=== PATIENT | male | born 1955 | race Caucasian/White ===

== ENCOUNTER 2025-10-30 11:53 | Emergency (ER) | payer MEDICARE, SELFPAY ==
[2025-10-30 12:44] VITALS: BP 126/69; PULSE 70; RESP 18; TEMP 36.6; O2SAT 97; BMI 20.6
--- NOTE | 2025-10-30 12:44 | ED.MALEGU ---
HPI - Male Genitourinary General Chief complaint: Urogenital-Male Stated complaint: Urinary Symptoms Time Seen by Provider: 10/30/25 17:17 Source: patient Mode of arrival: ambulatory Limitations: no limitations History of Present Illness ED Provider: Dr. Navarrete [facility] Narrative: 70-year-old male history of UTI eyes presented hospital today for evaluation of increased urinary frequency and urinary retention. Patient stated that he is able to urinate earlier today without any issues. He urinated approximately 2 hours ago. He had a good stream. He does take tamsulosin. Denies any dysuria however has been urinating more than usual. Patient's itonakpb-tl-dzy stated that patient does have. Confusion. She was worried about UTI. Related Data Previous Rx's ?Medication ?Instructions ?Recorded ciprofloxacin HCl 500 mg tablet 500 mg PO Q12H 7 days #14 tabs 10/30/25 Allergies Allergy/AdvReac Type Severity Reaction Status Date / Time No Known Allergies Allergy Verified 10/30/25 12:47 Review of Systems Review of Systems: Pertinent review of systems as mentioned in HPI. All other system otherwise negative. [facility] Past Medical History [facility] Narrative: Medical history as mentioned in [facility] Social History Social History Advance Directives: No Advance Directives Information Provided: No Physical Exam Exam: Exam: General: Pleasant, no distress, interacting appropriately Head: Normacephalic, atraumatic ENT: oral mucosa moist, neck supple, no tracheal deviation Cardiovascular: regular rate, regular rhythm, no murmurs, rubbing, gallops Respiratory: CTAB, no wheeze, rales, rhonchi Gastrointestinal: Soft, non distended, non tender, non guarding Neurological: Awake and alert, no facial droop noted Skin: Warm and dry Psychiatric: Appropriate mood and thoughts Vital Signs: Vital Signs: Last Vital Signs Temp 97.6 F 10/30/25 17:23 Pulse 55 10/30/25 17:23 Resp 18 10/30/25 12:44 BP 113/72 10/30/25 17:23 Pulse Ox 98 10/30/25 17:23 O2 Del Method Room Air 10/30/25 17:23 BMI result Body Mass Index 20.6 Course Course Course Narrative: This is an RME: Additional HPI, ROS, PE not included below will be deferred to primary provider. RME assessment and note performed by: Kena Houser PA-C This is a [id number], with a hx of recurrent Pseudomonas UTI, history of urinary retention, BPH, COPD, interstitial lung disease, hypertension, CHF, A-fib on Eliquis, who presents to the ER with a complaint of urinary frequency and incontinence x 2 weeks ago. He is a poor historian - medical hx collected from [facility] records. Patient was seen in the emergency department at [facility] on July 04, 2025, ultimately admitted due to UTI, BPH, AFib with RVR, anemia, COPD, CHF. No CP/SOB/Nausea/Vomiting. Plan: Labs, UA, further ER eval needed Medical Decision Making Medical Decision Making [facility] Narrative: This is a 70-year-old male presented hospital today for evaluation of urinary retention increased urinary frequency. Patient has been able to urinate. Patient's last urinate a couple of hours ago without any issues. Patient's UA did show signs of hematuria. Trace leuk esterase. Given patient's symptoms. We will treat patient for a possible UTI with ciprofloxacin. We will plan to give patient follow up with urology clinic for his hematuria. Encouraged him to drink plenty of fluid. Lab work did not show any signs of TOLU. He does have elevated BUN to creatinine ratio indicative of dehydration. Differential Diagnosis Differential Diagnoses: The differential diagnosis associated with the presentation includes Nephrolithiasis, UTI, hematuria Lab Data [facility] Lab Attestation statement: I reviewed the patient's lab results. 10/30/25 13:03 10/30/25 13:03 Labs: Lab Results 10/30/25 10/30/25 Range/Units 13:03 14:29 WBC 10.0 (4.8-10.8) X10*3/uL RBC 5.54 (4.60-5.80) X10*6/uL Hgb 14.6 (14.0-18.0) g/dl Hct 46.5 (42.0-52.0) % MCV 83.9 (80.0-98.0) fL MCH 26.4 L (27.0-33.0) pg MCHC 31.4 (31.0-36.0) g/dl RDW 19.4 H (11.0-16.0) % Plt Count 256 (160-400) X10*3/uL MPV 8.1 L (9.4-12.4) fL Immature Gran % (Auto) 0.3 (0.0-0.4) % Neut % (Auto) 61.4 (45-73) % Lymph % (Auto) 27.1 (20-40) % Gage % (Auto) 8.0 (2-11) % Eos % (Auto) 2.3 (0-4) % Baso % (Auto) 0.9 (0-2) % Lymph # (Auto) 2.7 (1.2-4.9) X10*3/uL Gage # (Auto) 0.8 (0.1-1.2) X10*3/uL Eos # (Auto) 0.2 (0.0-0.4) X10*3/uL Baso # (Auto) 0.1 (0.0-0.2) X10*3/uL Abs Immat Gran (auto) 0.03 (0.00-0.03) X10*3/uL Absolute Neuts (auto) 6.1 (2.0-8.3) x10*3/uL Absolute Nucleated RBC 0.000 (0.0-0.012) X10*3/uL Nucleated RBC % (auto) 0.0 (0.0-0.2) /100WBC Sodium 140 (135-145) mmol/L Potassium 3.9 (3.3-5.1) mmol/L Chloride 106 (96-108) mmol/L Carbon Dioxide 25 (22-29) mmol/L Anion Gap 13 (12-20) BUN 34 H (9-16) mg/dL Creatinine 0.81 (0.5-1.4) mg/dL Estim Creat Clear Calc 71.5 Estimated GFR > 60 Random Glucose 90 (60-115) mg/dL Calcium 9.4 (8.4-10.2) mg/dL Total Bilirubin 0.4 (0.0-1.0) mg/dL Direct Bilirubin 0.1 (0.0-0.5) mg/dL AST 20 (5-37) U/L ALT 21 (0-40) U/L Alkaline Phosphatase 105 (39-117) U/L Total Protein 7.7 (6.5-8.0) g/dL Albumin 4.3 (3.5-5.0) g/dL Urine Color Yellow Urine Appearance Clear Urine pH 5.5 (5.0-9.0) Ur Specific Dora 1.010 (1.005-1.025) Urine Protein Negative (Neg-Trace) mg/dL Urine Glucose (UA) Negative (Negative) mg/dL Urine Ketones Negative (Negative) mg/dL Urine Blood Large (3+) H (Negative) Urine Nitrite Negative (Negative) Ur Leukocyte Esterase Trace H (Negative) Urine RBC >20 H (0-2) /HPF Urine WBC 0-5 (0-5) /HPF Ur Squamous Epith Cells 0-2 (0-2) /HPF Urine Bacteria None Seen (None Seen) Hyaline Casts 0-2 (0-2) /LPF Discharge Plan Discharge Clinical Impression: Hematuria Qualifiers: Hematuria type: unspecified type Qualified Code(s): R31.9 - Hematuria, unspecified Patient Disposition: Home, Self-Care Instructions: Hematuria (ED) Additional Instructions: Drink at least 64 ounces of water. Return to ED if you are unable to urinate. Follow up with the urology clinic. You may benefit from a cystoscopy to look for source of your hematuria. Prescriptions: New ciprofloxacin HCl 500 mg tablet 500 mg PO Q12H 7 Days Qty: 14 0RF Referrals: [facility] [place] [facility] [Provider Group, Urology] Print Language: Mongolian
[2025-10-30 13:09] LABS: MANUAL DIFF FLAG NO
[2025-10-30 13:10] LABS: Hematocrit 46.5 % (42.0-52.0); Hemoglobin 14.6 g/dl (14.0-18.0); Imm Gran Abs Auto 0.03 X10*3/uL (0.00-0.03); Imm Gran Pct Auto 0.3 % (0.0-0.4); Lymphocytes Absolute Auto 2.7 X10*3/uL (1.2-4.9); Mean Corpuscular HGB Conc 31.4 g/dl (31.0-36.0); Mean Corpuscular Hemoglobin 26.4 pg (27.0-33.0); Mean Corpuscular Volume 83.9 fL (80.0-98.0); NRBC Abs Auto 0.000 X10*3/uL (0.0-0.012); NRBC Pct Auto 0.0 /100WBC (0.0-0.2); Platelet Count 256 X10*3/uL (160-400); Red Blood Count 5.54 X10*6/uL (4.60-5.80); White Blood Count 10.0 X10*3/uL (4.8-10.8)
[2025-10-30 13:26] LABS: Alanine Aminotransferase 21 U/L (0-40); Albumin Level 4.3 g/dL (3.5-5.0); Alkaline Phosphatase 105 U/L (39-117); Anion Gap 13 (12-20); Aspartate Amino Transferase 20 U/L (5-37); Blood Urea Nitrogen 34 mg/dL (9-16); Calcium 9.4 mg/dL (8.4-10.2); Carbon Dioxide 25 mmol/L (22-29); Chloride 106 mmol/L (96-108); Creatinine Clr Calc Pharmacy 71.5; Estimated Glomerular Filt Rate > 60; Potassium 3.9 mmol/L (3.3-5.1); Sodium 140 mmol/L (135-145); Total Protein 7.7 g/dL (6.5-8.0)
[2025-10-30 14:38] LABS: Appearance Urine Clear; Glucose Urine UA Negative (Negative); PH 5.5 (5.0-9.0); Specific Gravity - Urine 1.010 (1.005-1.025); UMIC TRIGGER UACC YES
[2025-10-30 17:23] VITALS: BP 113/72; PULSE 55; TEMP 36.4; O2SAT 98
[2025-10-30 19:16] VITALS: BP 128/70; PULSE 60; RESP 16; TEMP 36.7; O2SAT 98
--- OUTSIDE RECORDS SUMMARY | 2025-10-30 23:29 | XMS_ITS | Clinical Summary ---
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 2960 mL 11/08/20 24 Active magnesium oxide (MAG-OX) 400 mg (241.3 elemental magnesium) tablet TAKE ONE TABLET BY MOUTH EVERY DAY ^1R1 90 tablet 1 12/04/19 25 Active Tab-A-Ricky 400 mcg tablet TAKE ONE TABLET BY MOUTH EVERY DAY ^1R1 90 tablet 1 12/04/19 25 Active albuterol HFA (PROAIR HFA ; PROVENTIL HFA ; VENTOLIN HFA) 90 mcg/actuation inhaler Inhale 2 puffs by mouth every 4 (four) hours if needed for wheezing or shortness of breath. 25.5 g 1 03/28/20 25 Active folic acid (FOLVITE) 1 mg tablet TAKE ONE TABLET BY MOUTH EVERY DAY ^1R1 90 tablet 04/02/20 25 Active Breztri Aerosphere 160-9-4.8 mcg/actuation HFA aerosol inhaler inhaler Inhale 2 puffs by mouth 2 (two) times a day. 10.7 g 04/29/20 25 Active tamsulosin (FLOMAX) 0.4 mg 24 hr capsule Take 2 capsules (0.8 mg total) by mouth 1 (one) time each day. 180 capsule 1 06/12/20 25 Active pantoprazole (PROTONIX) 40 mg EC tablet TAKE ONE TABLET BY MOUTH EVERY DAY ^1R1 90 tablet 1 06/12/20 25 Active ascorbic acid (VITAMIN C) 500 mg chewable tablet Chew 1 tablet (500 mg total) 1 (one) time each day. 90 tablet 1 06/12/20 25 Active docusate sodium (COLACE) 100 mg capsule Take 1 Capsule by mouth 2 times daily as needed for Constipation. 180 capsule 1 06/12/20 25 Active ferrous sulfate 325 mg (65 mg iron) EC tablet TAKE ONE TABLET EVERY MONDAY, MONDAY AND MONDAY 36 tablet 1 07/16/20 25 Active methenamine hippurate (HIPREX) 1 gram tablet TAKE 1 TABLET BY MOUTH 2 TIMES A DAY WITH MEALS. 180 tablet 07/17/20 25 Active furosemide (LASIX) 40 mg tablet TAKE 1 TABLET BY MOUTH 1 TIME EACH DAY. 90 tablet 1 07/17/20 25 Active dilTIAZem CD (CARDIZEM CD) 180 mg 24 hr capsule TAKE 1 CAPSULE BY MOUTH 2 TIMES A DAY. 180 capsule 1 07/17/20 25 Active digoxin (LANOXIN) 125 mcg (0.125 mg) tablet Take 1 tablet (125 mcg total) by mouth 1 (one) time each day. 90 each 1 09/05/20 25 Active senna 8.6 mg tablet TAKE 1 TABLET (8.6 MG TOTAL) BY MOUTH 2 (TWO) TIMES A DAY IF NEEDED FOR CONSTIPATION. 180 tablet 09/17/20 25 Active apixaban (Eliquis) 2.5 mg tablet TAKE 1 TABLET BY MOUTH TWICE A DAY 60 tablet 2 10/15/20 25 Active apixaban (Eliquis) 2.5 mg tablet Take 1 tablet (2.5 mg total) by mouth 2 (two) times a day. 60 tablet 1 06/13/20 25 025 Discontinued Active Problems Problem Noted Date Diagnosed Date Congestive heart failure (CHF) 12/16/2024 Atrial fibrillation with rapid ventricular respo nse 11/07/2024 Constipation 11/07/2024 Hyperlipidemia 11/07/2024 ADHD 09/27/2024 HTN (hypertension) 09/12/2024 Hemorrhagic shock 09/12/2024 Hypotension 09/10/2024 (HFpEF) heart failure with preserved ejection fr action 09/10/2024 Deep vein thrombosis of brachial vein 09/10/2024 GI bleed 05/29/2024 Overview (09/27/2024): Severe upper. 06/12 Substance abuse 03/22/2024 Overview (05/14/2025): See ER note 02/10. Per family. Urine pos Fentanyl and Benzos 10/13. ER Fentanyl positive 05/14. [facility] declined to see pt post hosp due to girlfriend using heroin and son being drug dealer . Benign prostatic hyperplasia 02/24/2021 Atherosclerosis of both carotid arteries 019 Overview (09/27/2024): 04/07- 50-69% bilat- ref to vasc Anemia 07/20/2018 Overview (09/27/2024): 04/06. Repeat 07/07 much better. Iron was normal. Atrial fibrillation 03/29/2018 Overview (09/27/2024): Noted during hosp for sepsis 03/07. Pt could not decide on anticoagulation--[facility] Does not appear pt followed up with cardiology. Mixed simple and mucopurulent chronic bronchitis 01/04/2018 Centrilobular emphysema 01/04/2018 Stage 2 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 Pulmonary nodule 01/04/2018 Overview (06/18/2025): PET neg 04/06 11/06- f/u chest ct never done, has not scheduled followup with Pulmonology, letter sent, 12/23/2020 - New 1.2 cm pulmonary nodule found. Noncontrast CT ordered. Advised f/u with pulmo 06/13. Recheck 3-6 mo. ordered ILD (interstitial lung disease) 01/04/2018 Pulmonary fibrosis 01/04/2018 Left groin pain 08/25/2016 Abnormal CXR 06/09/2016 Overview (09/27/2024): 08/03 CT 07/05 similar. No change in density. Some progression of copd 11/06- f/u chest ct never done, has not scheduled followup with Pulmonology, letter sent, Elevated blood sugar 02/04/2016 Diverticulitis 01/20/2012 Overview (09/27/2024): Partial colectomy Tobacco use disorder 01/20/2012 Overview (09/27/2024): LDCT 03/07. RLL mass. PET or CT 3-6 mo recommended. ?addressed by [facility] Tumor board--downgraded. Repeat 1 yr 04/07 stable. Repeat 12 months 05/09 stable 03/11. 6 months Retinal detachment 06/18/2009 Overview (09/27/2024): Left, surgery x 2 for this Knee pain 06/18/2009 Overview (09/27/2024): S/p bilateral knee surgeries-arthroscopic Sciatica 03/08/2007 Overview (09/27/2024): L4-5 disc surgery 1984, repeat 1986 L2-3 disc surgery 11/01 ([facility]) Resolved Problems Problem Noted Date Diagnosed Date Resolved Date COPD exacerbation 10/18/2024 10/19/2024 Encounters Date Type Department Care Team Description 10/21/2025 2:45 PM EST - 10/21/2025 11:59 PM EST Hospital Encounter [facility] CT Scan [address] [place] [address] Pulmonary nodule Discharge Disposition: Home or Self Care 10/03/2025 3:00 PM EST Office Visit Adult Medicine [address] [address] Julianne Palmer NP Persistent atrial fibrillation (CMS/HCC V24, CMS/HCC V28) (Primary Dx); Acute on chronic heart failure with preserved ejection fraction (HFpEF) (CMS/HCC V24, CMS/HCC V28); Stage 2 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 (CMS/HCC V24, CMS/HCC V28) from Last 3 Months Immunizations Immunization Administration Dates Next Due Influenza Quadrivalent, 0.5m l, preservative free (Fluarix; FluLaval; Fluzone) ages 6mo and older (Afluria) 3yo and older 08/11/2015 Influenza trivalent, 0.5mL ( Fluzone High-dose) 65yo and older 09/10/2018 Influenza trivalent, 0.5mL, preservative free (Fluarix; FluLaval; Fluzone) ages 6mo and older (Afluria) 3 years and older 08/14/2017,09/20/2016 Moderna SARS-CoV-2 COVID-19, mRNA, LNP-S, preservative free 01/02/2022 Pneumococcal polysaccharide 23 valent (Pneumovax 23) 2yo and older 09/10/2018 Td Tetanus diptheria (Tdvax) 7yo and older 09/10 Tdap Tetanus diptheria acell ular pertussis (Boostrix; Adacel) 7yo and older 03/08/2007 Surgical History Surgery Date Site/Laterality Comments LUMBAR LAMINECTOMY PROCEDURE: HISTORICAL LUMB LAMINECTOMY; COMMENT: x2 85, 87 HERNIA REPAIR PROCEDURE: HISTORICAL HERNIA REPAIR/ING KNEE SURGERY PROCEDURE: HISTORICAL KNEE SURGERY; COMMENT: bilat arthroscopy FOOT SURGERY PROCEDURE: HISTORICAL FOOT SURGERY; COMMENT: x 2 OTHER SURGICAL HISTORY PROCEDURE: HI COLECTOMY PARTIAL W/ANASTOMOSIS; COMMENT: diverticulitis COLONOSCOPY 01/30/2013 PROCEDURE: HISTORICAL COLONOSCOPY; COMMENT: tics; repeat in ten yrs BACK SURGERY 10/2013 PROCEDURE: HISTORICAL BACK SURGERY; COMMENT: L2-3 OTHER SURGICAL HISTORY Left PROCEDURE: HISTORY OTHER Medical History Medical History Date Comments S/P foot surgery 06/18/2009 DX:S/P foot ana mark Retinal detachment 06/18/2009 DX:Retinal de tachment Bilateral edema of lower extremity DX:Bilateral edema of lower extremity CHF (congestive heart failur e) ([facility] V24, [facility] V28) Atrial fibrillation ([facility] [place], [facility] V28) CHF (congestive heart failur e) ([facility] [place], [facility] V28) COPD (chronic obstructive pu lmonary disease) ([facility] [place]24, [facility] V28) GERD (gastroesophageal reflux disease) BPH (benign prostatic hyperplasia) Family History Medical History Relation Name Comments No Known Problems Brother half brother No Known Problems Daughter Diabetes Father Other cancer Father unknown type, ? lung Breast cancer Mother Diabetes Paternal Grandfather Diabetes Paternal Grandmother No Known Problems Sister half sister No Known Problems Son Relation Name Status Comments Brother half brother Daughter Alive Father Mother Paternal Grandfather Paternal Grandmother Sister half sister Alive Son Alive Social History Tobacco Use Types Packs/Day Years Used Date Smoking Tobacco: Every Day Cigarettes Smokeless Tobacco: Never Tobacco Cessation:Ready to Q uit: Not Asked; Counseling Given: Not Answered Alcohol Use Standard Drinks/Week Comments Yes 0 (1 standard drink = 0.6 oz pur e alcohol) special occasions Housing Instability Answer Date Recorde d Are you worried that in the next 2 months you may not have stable housing? No 04/02/2025 Food Access & Nutrition Answer Date Rec orded Do you have access to a vari ety of food including fruits and vegetables? Yes 04/02/2025 Access to Healthcare Answer Date Record ed Within the last 3 months, ho w many times did you visit the emergency department for your medical care? 3 05/07/2025 Health Literacy Answer Date Recorded How often do you need to hav e someone help you when you read instructions, pamphlets, or other written material from your doctor or pharmacy? Always 04/02/2025 Caregiver: How often do you need to have someone help you when you read instructions, pamphlets, or other written material from your doctor or pharmacy? Not on file 04/02/2025 Financial Risk Answer Date Recorded How hard is it for you to pa y for the very basics like food, housing, medical care, and air conditioning / heating? Not very hard 04/02/2025 Transportation Answer Date Recorded Has the lack of transportati on kept you from meetings, work, or from getting things needed for daily living? No Has the lack of transportati on kept you from medical appointments or from getting medications? Yes 05/19/2025 Social Isolation Answer Date Recorded How often do you feel lonely or isolated from those around you? Unable to respond 04/02/2025 Food Risk Answer Date Recorded Within the past 12 months we worried whether our food would run out before we got money to buy more. Never true 04/02/2025 Within the past 12 months th e food we bought just didn't last and we didn't have money to get more. Never true 04/02/2025 Dependent Care Answer Date Recorded Do you need help finding or paying for care for your loved ones. For example, child care nurse or elderly care for an older adult? No 04/02/2025 Education Answer Date Recorded Do you think completing more education or training, like finishing a GED, going to college, or learning a trade, would be helpful for you? N/A 04/02/2025 Employment and Income Answer Date Recor ded During the last four weeks, have you been actively looking for work? No 04/02/2025 Living Situation Answer Date Recorded What is your living situation? Unrecognized valu e 04/02/2025 Interpersonal Safety Answer Date Record ed Physical Abuse Unrecognized value 10/19/2024 Verbal Abuse Unrecognized value 10/19/2024 Sex and Gender Information Value Date Recorded Sex Assigned at Male 10/03/2024 10:24 AM EST Legal Sex Male 10:42 PM EST Gender Identity Male 10/03/2024 10:24 AM EST Sexual Orientation Straight 10/03/2024 10 :24 AM EST Last Filed Vital Signs Vital Sign Reading Time Taken Comments Blood Pressure 104/61 10/03/2025 2:54 PM EST Pulse 63 10/03/2025 2:54 PM EST Temperature 36.6 C (97.8 F) 10/03/2025 2:54 PM EST Respiratory Rate 16 06/24/2025 1:50 PM EDT Oxygen Saturation 99% 01/10/2025 10:49 PM EST Inhaled Oxygen Concentration - - Weight 60.8 kg (134 lb) 10/03/2025 2:54 PM EST Height 174 cm (5' 8.5 ) 10/03/2025 2:54 PM EST Body Mass Index 20.08 10/03/2025 2:54 PM EST Plan of Treatment Upcoming Encounters Date Type Department Care Team (Late st Contact Info) Description 11/03/2025 10:30 AM EST Office Visit Adult Medicine - [place] [address] [place] [id number] Julianne Palmer NP [address] [place] [address] Health Maintenance Due Date Last Done Comments Hepatitis A Vaccines (1 of 2 - Risk 2-dose series) 1972 Zoster Vaccines (1 of 2) 2003 Abdominal Aortic Aneurysm (AAA) Screen 10/29/2022 Depression Screening 11/20/2024 12/21/2023 Falls Risk Assessment 12/21/2024 12/21/2023 Medicare Annual Wellness Visit 12/21/2024 12/21/2023 COVID-19 Vaccine ( season) 2025 11/07/2022, 01/02/2022, 04/17/2021, Additional history exists Influenza Vaccine (#1) 2025 3, 09/27/2021, 08/21/2020, Additional history exists Hypertension/CHF/CAD Annual BMP Blood Test 01/10/2026 01/10/2025, 12/16/2024, 12/15/2024, Additional history exists Social Influencers of Health Screening 05/19/2026 05/19/2025 Cholesterol Screening (Lipid Panel) 01/04/2028 01/04/2023 DTaP,Tdap,and Td Vaccines (3 - Td or Tdap) 09/10/2028 09/10/2018, 03/08/2007 Colorectal Cancer Screening: Colonoscopy 04/28/2033 04/28/2023 Hepatitis C Screening Completed 03/13/2014 Pneumococcal Vaccine: 50+ Years Completed 11/07/2022, 08/09/2019, 09/10/2018 RSV Immunization Adult Patients Completed 08/09/2023 HIB Vaccines Aged Out No longer eligi ble based on patient's age to complete this topic HPV Vaccines Aged Out No longer eligi ble based on patient's age to complete this topic Hepatitis B Vaccines Aged Out No long er eligible based on patient's age to complete this topic IPV Vaccines Aged Out No longer eligi ble based on patient's age to complete this topic MMR Vaccines Aged Out No longer eligi ble based on patient's age to complete this topic Meningococcal ACWY Vaccine Aged Out N o longer eligible based on patient's age to complete this topic Meningococcal B Vaccine Aged Out No l onger eligible based on patient's age to complete this topic RSV Immunization Patients Under 20 months Aged Out No longer eligible based on patient's age to complete this topic Varicella Vaccines Aged Out No longer eligible based on patient's age to complete this topic Procedures Procedure Name Priority Date/Time Associated Diagnosis Comments CT CHEST WO CONTRAST Routine 10/21/2025 3:10 PM EST Pulmonary nodule COMPREHENSIVE METABOLIC PANEL STAT 01/10/2025 8:49 PM EST HM DEPRESSION SCREENING Routine 12/21/2023 FALLS RISK ASSESSMENT Routine 12/21/2023 COLONOSCOPY Routine 04/28/2023 LIPID PANEL Routine 01/04/2023 HEPATITIS C SCREENING Routine 03/13/2014 from Last 3 Months or Most Recently Relevant to Health Maintenance Results * CT Chest wo Contrast (10/21/2025 3:10 PM EST) Anatomical Region Laterality Modality Body Computed Tomogra phy 10/28/2025 5:44 PM EST Impressions 10/28/2025 6:11 PM EST 1. The peripheral opacity in the posteromedial aspect of the posterior segment of the right upper lobe demonstrated on 06/05/25 has resolved. 2. There is severe interstitial lung disease with superimposed centrilobular emphysema with a paraseptal component. 3. There is a rounded density with associated bronchiolectasis and volume loss in the posterior medial right lower lobe. This abuts an area of calcification and pleural plaque formation with surrounding consolidation. This is likely rounded atelectasis. 4. There are extensive calcified and noncalcified plaques with extrapleural fat prominence. 5. The central pulmonary arteries are dilated. This can be seen with pulmonary arterial hypertension. -------- FINAL REPORT -------- Dictated By: Kevin Chapman Dictated Date: 10/28/2025 17:44 ET Assigned Physician: Kevin Chapman Reviewed and Electronically Signed By: Kevin Chapman Signed Date: 10/28/2025 18:11 ET Workstation ID: [id number] Transcribed By: Self Edit Transcribed Date: 10/28/2025 17:44 ET Narrative 10/28/2025 6:11 PM EST EXAMINATION: CT CHEST WITHOUT CONTRAST CLINICAL INFORMATION: Evaluate for interval changes. Pleural-based nodule posterior right upper lobe on previous CT COMPARISON: Portions of a previous CT 06/05/25 TECHNIQUE: Multidetector CT. Examination of the chest. Examination of the chest without IV contrast. Reformatting in the coronal and sagittal planes. DLP: 374 mGy-cm Dose optimization was performed including the use of low-dose iterative reconstruction technique with automatic exposure control based on patient size. Type of contrast: None Volume of IV contrast: None Volume of contrast discarded: 0 mL FINDINGS: LUNG: No suspicious abnormality of the trachea or mainstem bronchi. The peripheral opacity in the posteromedial aspect of the posterior segment of the right upper lobe demonstrated on 06/05/25 has resolved. There is severe interstitial lung disease with coarse reticular opacities likely honeycombing. There is superimposed centrilobular emphysema with a paraseptal component. There is an unchanged irregular area of distortion in the anterior right upper lobe (4/70). There is a rounded density with associated bronchiolectasis and volume loss in the posterior medial right lower lobe. This abuts an area of calcification and pleural plaque formation with surrounding consolidation 10/21/25-2.1 cm (3/94) 06/05/25-2.2 cm (2/215) 11/07/24-2.4 cm (5/66) MEDIASTINUM: There are several mediastinal lymph nodes including AP window, retrocaval pretracheal and subcarinal stations. Appear unchanged. CARDIAC: The heart is enlarged. There is no pericardial fluid. CORONARY CALCIFICATION: There are marked coronary calcifications. VASCULAR: There is no thoracic aortic aneurysm. There are arterial calcifications. The central pulmonary arteries are dilated. PLEURA: There are extensive calcified and noncalcified plaques with extrapleural fat prominence. There is likely some rounded atelectasis. There is no drainable pleural fluid or pneumothorax. AXILLA/CHEST WALL: There are no enlarged axillary lymph nodes. No chest wall mass demonstrated. VISUALIZED UPPER ABDOMEN: No suspicious abnormality on limited assessment of the visualized upper abdomen. No definite change in low attenuating prominence of the adrenal glands. MUSCULOSKELETAL: No suspicious focal bony lesion. There is likely some callus associated with nondisplaced lower rib fractures. There is minimal superior endplate anterior compression deformity of L1. Procedure Note Kevin Chapman MD - 10/28/2025 EXAMINATION: CT CHEST WITHOUT CONTRAST CLINICAL INFORMATION: Evaluate for interval changes. Pleural-based nodule posterior right upperlobe on previous CT COMPARISON: Portions of a previous CT 06/05/25 TECHNIQUE: Multidetector CT. Examination of the chest. Examination of the chest without IV contrast. Reformatting in the coronal and sagittal planes. DLP: 374 mGy-cm Dose optimization was performed including the use of low-dose iterativereconstruction technique with automatic exposure control based on patientsize. Type of contrast: None Volume of IV contrast: None Volume of contrast discarded: 0 mL FINDINGS: LUNG: No suspicious abnormality of the trachea or mainstem bronchi. The peripheral opacity in the posteromedial aspect of the posteriorsegment of the right upper lobe demonstrated on 06/05/25 has resolved. There is severe interstitial lung disease with coarse reticular opacitieslikely honeycombing. There is superimposed centrilobular emphysema with aparaseptal component. There is an unchanged irregular area of distortion in the anterior rightupper lobe (4/70). There is a rounded density with associated bronchiolectasis and volumeloss in the posterior medial right lower lobe. This abuts an area ofcalcification and pleural plaque formation with surroundingconsolidation 10/21/25-2.1 cm (3/94) 06/05/25-2.2 cm (2/215) 11/07/24-2.4 cm (5/66) MEDIASTINUM: There are several mediastinal lymph nodes including APwindow, retrocaval pretracheal and subcarinal stations. Appearunchanged. CARDIAC: The heart is enlarged. There is no pericardial fluid. CORONARY CALCIFICATION: There are marked coronary calcifications. VASCULAR: There is no thoracic aortic aneurysm. There are arterialcalcifications. The central pulmonary arteries are dilated. PLEURA: There are extensive calcified and noncalcified plaques withextrapleural fat prominence. There is likely some rounded atelectasis.There is no drainable pleural fluid or pneumothorax. AXILLA/CHEST WALL: There are no enlarged axillary lymph nodes. No chestwall mass demonstrated. VISUALIZED UPPER ABDOMEN: No suspicious abnormality on limited assessmentof the visualized upper abdomen. No definite change in low attenuatingprominence of the adrenal glands. MUSCULOSKELETAL: No suspicious focal bony lesion. There is likely somecallus associated with nondisplaced lower rib fractures. There is minimalsuperior endplate anterior compression deformity of L1. IMPRESSION: 1. The peripheral opacity in the posteromedial aspect of the posteriorsegment of the right upper lobe demonstrated on 06/05/25 has resolved. 2. There is severe interstitial lung disease with superimposedcentrilobular emphysema with a paraseptal component. 3. There is a rounded density with associated bronchiolectasis and volumeloss in the posterior medial right lower lobe. This abuts an area ofcalcification and pleural plaque formation with surrounding consolidation.This is likely rounded atelectasis. 4. There are extensive calcified and noncalcified plaques withextrapleural fat prominence. 5. The central pulmonary arteries are dilated. This can be seen withpulmonary arterial hypertension. -------- FINAL REPORT -------- Dictated By: Kevin Chapman Dictated Date: 10/28/2025 17:44 ET Assigned Physician: Kevin Chapman Reviewed and Electronically Signed By: Kevin Chapman Signed Date: 10/28/2025 18:11 ET Workstation ID: [id number] Transcribed By: Self Edit Transcribed Date: 10/28/2025 17:44 ET Kary Troy NP IM CT PROCEDURES Final Res ult * (ABNORMAL) Comprehensive metabolic panel (01/10/2025 8:49 PM EST) Sodium 141 133 - 145 mmol/L LAB CHEMISTRY METHOD 01/10/2025 9:41 PM [facility] Potassium 4.3 3.5 - 5.5 mmol/L LAB CHEMISTRY METHOD 01/10/2025 9:41 PM [facility] Chloride 110 96 - 110 mmol/L LAB CHEMISTRY METHOD 01/10/2025 9:41 PM [facility] CO2 24 21 - 32 mmol/L LAB CHEMISTRY METHOD 01/10/2025 9:41 PM [facility] Anion Gap 7 3 - 11 LAB CHEMISTRY METHOD 01/10/2025 9:41 PM [facility] Glucose 93 70 - 100 mg/dL LAB CHEMISTRY METHOD 01/10/2025 9:41 PM [facility] BUN 32(H) 5 - 25 mg/dL LAB CHEMISTRY METHOD 01/10/2025 9:41 PM [facility] Creatinine 0.71 0.70 - 1.30 mg/dL LAB CHEMISTRY METHOD 01/10/2025 9:41 PM [facility] eGFR 98 >=60 mL/min/1. 73m2 LAB CHEMISTRY METHOD 01/10/2025 9:41 PM [facility] Comment:Calculation based on the Chronic Kidney Disease Epidemiology Collaboration (CKD-EPI) equation refit without adjustment for race. BUN/Creatinine Ratio 45.1 LAB CHEMISTRY METHOD 01/10/2025 9:41 PM [facility] Calcium 9.1 8.5 - 10.5 mg/dL LAB CHEMISTRY METHOD 01/10/2025 9:41 PM [facility] AST (SGOT) 19 10 - 42 unit/L LAB CHEMISTRY METHOD 01/10/2025 9:41 PM [facility] ALT (SGPT) 25 10 - 60 unit/L LAB CHEMISTRY METHOD 01/10/2025 9:41 PM [facility] Alkaline Phosphatase 130(H) 42 - 121 unit/L LAB CHEMISTRY METHOD 01/10/2025 9:41 PM [facility] Total Protein 6.9 6.0 - 8.0 g/dL LAB CHEMISTRY METHOD 01/10/2025 9:41 PM [facility] Albumin 3.4 3.2 - 5.0 g/dL LAB CHEMISTRY METHOD 01/10/2025 9:41 PM [facility] Total Bilirubin 0.2 0.0 - 1.4 mg/dL LAB CHEMISTRY METHOD 01/10/2025 9:41 PM [facility] Blood Venous blood specimen / Unknown Venipuncture / Unknown 01/10/2025 8:49 PM EST 01/10/2025 8:55 PM EST Sallie Hicks Amaury Landon DO LAB BLOOD ORDERABLES Lety l Result [facility] [address] [place] [address], * Falls Risk Assessment (12/21/2023) [facility] [place] Risk Assessment Abstracted Historical Provider HEALTH MAINTENANCE Final Result * Depression Screening (12/21/2023) [facility] Depression Screening Abstracted [facility] Provider HEALTH MAINTENANCE Final Result * Colonoscopy (04/28/2023) [facility] Colonoscopy No interpretation , abstracted Anatomical Region Laterality Modality Other [facility] Provider HEALTH MAINTENANCE Final Result * (ABNORMAL) Lipid panel (01/04/2023) [facility] LDL/HDL Ratio 3 0 - 4 Triglycerides 100 0 - 150 mg/dL Cholesterol 205(A) 0 - 200 mg/dL HDL 68 >=40 mg/dL LDL Cholesterol 117(A) 0 - 100 mg/dL Blood Venous blood specimen / Unknown Historical Provider LAB BLOOD ORDERABLES Lety l Result * Hepatitis C Screening (03/13/2014) [facility] Hepatitis C Screening Abstracted Historical Provider HEALTH MAINTENANCE Final Result from Last 3 Months or Most Recently Relevant to Health Maintenance Insurance [facility] Advance Directives Documents on File Type Date Recorded 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 Health Care Decision (hx) 06/11/2024 AD VALDEZ DIRECTIVE Health Care Decision (hx) 06/11/2024 AD VALDEZ DIRECTIVE Health Care Decision (hx) 11/18/2013 AD VALDEZ DIRECTIVE Health Care Decision (hx) 11/18/2013 AD VALDEZ DIRECTIVE Health Care Decision (hx) 11/18/2013 AD VALDEZ DIRECTIVE Health Care Decision (hx) 11/18/2013 AD VALDEZ DIRECTIVE Health Care Decision (hx) 11/18/2013 AD VALDEZ DIRECTIVE Health Care Decision (hx) 11/18/2013 AD VALDEZ DIRECTIVE Health Care Decision (hx) 11/18/2013 AD VALDEZ DIRECTIVE Health Care Decision (hx) 11/18/2013 AD VALDEZ DIRECTIVE Health Care Decision (hx) 11/18/2013 AD VALDEZ DIRECTIVE Health Care Decision (hx) 11/18/2013 AD VALDEZ DIRECTIVE Health Care Decision (hx) 10/28/2013 AD VALDEZ DIRECTIVE Health Care Decision (hx) 10/28/2013 AD VALDEZ DIRECTIVE Health Care Decision (hx) 10/28/2013 AD VALDEZ DIRECTIVE Health Care Decision (hx) 10/28/2013 AD VALDEZ DIRECTIVE Health Care Decision (hx) 10/28/2013 AD VALDEZ DIRECTIVE Health Care Decision (hx) 10/28/2013 AD VALDEZ DIRECTIVE Health Care Decision (hx) 10/28/2013 AD VALDEZ DIRECTIVE Health Care Decision (hx) 10/28/2013 AD VALDEZ DIRECTIVE Health Care Decision (hx) 10/28/2013 AD VALDEZ DIRECTIVE Health Care Decision (hx) 10/28/2013 AD VALDEZ DIRECTIVE * Full Code - Default (Latest Code Status on File) Date Activated Date Inactivated Comments 12/16/2024 5:04 AM 12/16/2024 2:23 PM This is orde r is used when code status has not been discussed with the patient, or code status is otherwise unknown/unconfirmed To update the patient's code status, place a code status order. Do not modify or discontinue any currently active code status orders. * Full Code - Default Date Activated Date Inactivated Comments 11/07/2024 10:43 PM 11/08/2024 6:08 PM This is o rder is used when code status has not been discussed with the patient, or code status is otherwise unknown/unconfirmed To update the patient's code status, place a code status order. Do not modify or discontinue any currently active code status orders. * Full Code - Default Date Activated Date Inactivated Comments 10/19/2024 4:01 AM 10/19/2024 2:17 PM This is or rosendo is used when code status has not been discussed with the patient, or code status is otherwise unknown/unconfirmed To update the patient's code status, place a code status order. Do not modify or discontinue any currently active code status orders. * Full Code - Default Date Activated Date Inactivated Comments 10/03/2024 11:16 AM 10/03/2024 6:02 PM This is o rder is used when code status has not been discussed with the patient, or code status is otherwise unknown/unconfirmed To update the patient's code status, place a code status order. Do not modify or discontinue any currently active code status orders. Care Teams Box Truck Driver Relationship Specialty Start Date End Date Lima Grady MD [address] [place] [id number] PCP - General 12/31/10
--- OUTSIDE RECORDS SUMMARY | 2025-10-30 23:29 | XMS_ITS | Encounter Summary ---
Author Organization [facility] [place] [address] Care Team Providers Care Chip Washer Name Role Phone Lima Grady MD Primary Care Provider [phone] Encounter Details Date Type Department Care Team (Late st Contact Info) Description 05/19/2025 Referral Triage [facility] [address] [phone] Linette Henry Social History Tobacco Use Types Packs/Day Years Used Date Smoking Tobacco: Every Day Cigarettes Smokeless Tobacco: Never Alcohol Use Standard Drinks/Week Comments Not Currently 0 (1 standard drink = 0.6 oz pure alcohol) pt refuses to answer... i've answered 500 survey questions. Look it up Housing Instability Answer Date Recorde d Are [...] care for your loved ones. For example, infant childcare provider or elderly care for an older adult? [...] Orientation Straight 10/03/2024 10 :24 AM EST documented as of this encounter Functional Status * Are you deaf or do you have serious difficulty hearing? Answer Date of Assessment Author No 12/15/2024 8:21 PM EST Seu Arroyo, AYESHA * Are you blind or do you have serious difficulty seeing, even when wearing glasses? Answer Date of Assessment Author No 12/15/2024 8:21 PM Sue Singletary RN * Do you have serious difficulty walking or climbing stairs? Answer Date of Assessment Author No 12/15/2024 8:21 PM Sue Singletary RN * Do you have serious difficulty dressing or bathing? Answer Date of Assessment Author No 12/15/2024 8:21 PM Sue Singletary RN * Because of a physical, mental, or emotional condition, do you have serious difficulty doing errandsalone such as visiting the doctor? Answer Date of Assessment Author No 12/15/2024 8:21 PM Sue Singletary RN documented as of this encounter Mental Status * Because of a physical, mental, or emotional condition, do you have serious difficulty concentrating, remembering, or making decisions? (5 years old or older) Answer Entry Date Author No 12/15/2024 8:21 PM Sue Singletary RN documented in this encounter Progress Notes * Linette Henry - 05/19/2025 3:53 PM EDT Referral triage: Assigned to Edward (CHW) Reason for referral: +[facility] for transportation needs, please call patient's DIL Marissa [phone] Linette Henry Community Health Worker (CHW) Division Order Technician/Regional documented in this encounter Plan of Treatment Upcoming Encounters Date Type Department Care Team (Late st Contact Info) Description 11/03/2025 10:30 AM EST Office Visit Adult Medicine - [place] [address] [place] [address] Julianne Palmer NP [address], [place] documented as of this encounter Visit Diagnoses Not on filedocumented in this encounter Care Teams Chip Washer Relationship Specialty Start Date End Date Lima Grady MD [address], [place] PCP - General 12/31/10 documented as of this encounter
--- OUTSIDE RECORDS SUMMARY | 2025-10-30 23:29 | XMS_ITS | Encounter Summary ---
Author Organization [facility] [place] [address] Care Team Providers Care Director Cardiac Name Role Phone Lima Grady MD Primary Care Provider [phone] Encounter Details Date Type Department Care Team (Late st Contact Info) Description 07/08/2025 Lab Requisition [facility] - Main Lab [address] [facility] [place] [phone] Glenn Hector MD [address] [place] [address] Elevated prostate specific antigen (PSA); Urinary tract infection, site not specified Social History Tobacco Use Types Packs/Day Years [...] Record ed Within the last 3 months, juliane vega many times did you visit the emergency [...] for your loved ones. For example, child adolescent psychiatrist or elderly care for an older adult? [...] 12/15/2024 8:21 PM Sue Singletary RN * Are you blind or do you [...] Sue Singletary RN documented in this encounter Plan of Treatment Upcoming Encounters Date Type Department Care Team (Late st Contact Info) Description 11/03/2025 10:30 AM EST Office Visit Adult Medicine - [address] [phone] Julianne Palmer NP [address] [place] [address] documented as of this encounter Procedures Procedure Name Priority Date/Time Associated Diagnosis Comments CULTURE URINE Routine 07/08/2025 12:00 AM EDT Elevated prostate specific antigen (PSA) Urinary tract infection, site not specified documented in this encounter Results * Culture urine (07/08/2025 12:00 AM EDT) Culture, Urine 50,000-99,000 CFU/mL Mixed urogenital radha, no uropathogens present. Suggest repeat specimen if clinically indicated. 07/10/2025 12:56 PM EDT [facility] Urine Urine specimen obtained by clean catch procedure / Unknown 07/08/2025 07/08/2025 6:33 PM EDT us Glenn Hector MD LAB MICROBIOLOGY - GENERAL LAINE ULLOA Final Result [facility] [address] [place] [address], documented in this encounter Visit Diagnoses Diagnosis Elevated prostate specific antigen (PSA) Urinary tract infection, site not specified documented in this encounter Care Teams Director Cardiac Relationship Specialty Start Date End Date Lima Grady MD [address] [place] [id number] PCP - General 12/31/10 documented as of this encounter
--- OUTSIDE RECORDS SUMMARY | 2025-10-30 23:29 | XMS_ITS | Clinical Summary ---
Author Organization [facility] Address [address] [place] [address] Care Team Providers Care Package Handler Name Role Phone Unavailable Primary Care Provider Unavailabl e Social History Tobacco Use Types Packs/Day Years Used Date Smoking Tobacco: Never Assessed Sex and Gender Information Value Date Recorded Sex Assigned at Not on file Legal Sex Male 3:36 PM EDT Gender Identity Not on file Sexual Orientation Not on file Plan of Treatment Health Maintenance Due Date Last Done Comments Hepatitis C Screening 1955 DTaP/Tdap/Td (1 - Tdap) 1971 Pneumococcal 50+ years (1 of 1 - PCV) 2003 Zoster (Shingrix) (1 of 2) 2003 COVID-19 Vaccine ( - 2024-2 6 season) 2025 Influenza (#1) 2025 RSV (1 - 1-dose 75+ series) 2028 Abdominal Aorta Imaging Discontinued HPV Vaccine (No Doses Required) Completed Hep A Aged Out No longer eligi ble based on patient's age to complete this topic Hep B Aged Out No longer eligi ble based on patient's age to complete this topic Hib Aged Out No longer eligi ble based on patient's age to complete this topic Meningococcal ACWY Aged Out No longer eligible based on patient's age to complete this topic Zoster (Zostavax) Discontinued
== END 2025-10-30 20:01 | disposition home or self-care (01) ==
PROVIDERS: Physician Assistant Medical; Emergency Provider Student in an Organized Health Care Education/Training Program; PCP Obstetrics & Gynecology Gynecologic Oncology
DX: R31.9 Hematuria, unspecified (principal); R35.0 Frequency of micturition; R33.9 Retention of urine, unspecified; R41.0 Disorientation, unspecified; Z79.01 Long term (current) use of anticoagulants; Z79.899 Other long term (current) drug therapy
CPT/HCPCS: 36415; 80048; 80076; 81001; 85025; 99283